=== PATIENT | female | born 2000 | race Caucasian/White ===

== ENCOUNTER 2023-12-20 18:15 | Emergency (ER) | payer OTHER, SELFPAY ==
[2023-12-20 18:19] VITALS: BP 144/94
--- NOTE | 2023-12-20 19:53 | ED.GENMED ---
History of Present Illness
General
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
Source: patient
Exam Limitations: none
Time Seen by Provider: 12/20/23 19:31
History of Present Illness
History of Present Illness:
This is a 23 year old female that comes in with c/o vaginal mass. States that she found this today in the vaginal area and there is no pain. States that she has a little diarrhea. States that she also recently had a UTI. Denies any fever, chills,
chest pain, SOB, abd pain, nausea vomiting, diarrhea, headache, dizziness, urinary burning.
Past History
Past History
ED Past Medical History: Hypercholesterolemia
ED Past Surgical History: None
Social History
Tobacco: Non-smoker
Alcohol: Occasional
Personal: Single
Living: with family
Review of Systems
Review of Systems
All Other Systems: ROS reviewed and negative except as documented in HPI and ROS
Constitutional: Reports no symptoms; Denies fever or chills
EENT: Reports no symptoms
Respiratory: Reports no symptoms; Denies cough or trouble breathing
Cardiac: Reports no symptoms; Denies chest pain
ABD/GI: Reports diarrhea; Denies abdominal pain, nausea or vomiting
: Reports other (vaginal mass)
Musculoskeletal: Reports no symptoms
Skin: Reports no symptoms
Neurological: Reports no symptoms; Denies dizzy or headache
Psychiatric: Reports no symptoms
Phy Exam
General Physical Exam
General Presentation: well appearing and no apparent distress
General age: appears stated age
General Skin: warm and dry
General Habitus: normal
General Mental: alert
General Hydration: appears well hydrated
ENT Exam
ENT Exam: TM's normal, pharynx normal and neck supple
Eye Exam
Eye Exam: EOMI
Cardiovascular Exam
Cardiovascular Exam: regular rate/rhythm, no edema, no murmur and normal peripheral pulses
Pulmonary Exam
Pulmonary Exam: lungs clear, no respiratory distress, no rales, chest non tender, no crackles, no rhonchi, no wheezing and no cough
Gastrointestinal Exam
Gastrointestinal Exam: normal bowel sounds, non tender, soft, no organomegaly, no pulsatile mass and non distended
Genitourinary Exam Female
Vaginal Exam: other (small appearing blood collection at the urethra. Pliable)
Vaginal Bleeding: none
Musculoskeletal Exam
Musculoskeletal Exam: full ROM and no edema
Skin Exam
Skin Exam: normal color, warm/dry, no rash and no petechia
Psychiatric Exam
Psychiatric Exam: normal mood/affect
Course
Vital Signs
Initial and Last Documented VS:
Initial Vital Signs
Temp Pulse Resp BP Pulse Ox
99 F 97 20 144/94 99
12/20/23 18:19 12/20/23 18:19 12/20/23 18:19 12/20/23 18:19 12/20/23 18:19
Last Documented Vital Signs
Temp Pulse Resp BP Pulse Ox
99 F 97 20 144/94 99
12/20/23 18:19 12/20/23 18:19 12/20/23 18:19 12/20/23 18:19 12/20/23 18:19
MDM/Problems Addressed
Differential Diagnosis Includes:
Vaginal hemorrhoid, Ureteral hemorrhoid
MDM/Problems Addressed:
This is a 23 year old female that comes in with c/o a vaginal mass. States that she just found this today and it is not painful.
Explained that this is like a Hemorrhoid but in the vaginal area near the urethra. Will have patient do warm sits baths and follow up with the [facility] and the Urologist. Patient to return with any concerns.
Chronic conditions affecting care:
NA
Acute Exacerbation and/or Progression of Chronic Illness:
NA
*Pulse Oximetry
Patient hypoxic: no
*EKG
Interpreted by ED Provider?: NA
Rate: EKG- N/A
*Front End Loader Operator Interpretation
Rate: Front End Loader Operator- N/A
*Critical Care Note
Total Time (30-74mins, 75-104mins- exclusive of procedures): Not Applicable
ED Attending Note
-
Portions of this chart may have been created with voice recognition software.� Occasional wrong word or��sound alike� substitutions may have occurred due to the inherent limitations of voice recognition software.
Discharge Plan
Departure
Disposition: Home (Routine Discharge)
Date of Disposition: 12/20/23
Time of Disposition: 20:02
Patient with high blood pressure during this ER visit?: Yes
Condition: Good
Covid-19: Not Applicable
Discharge Problem:
VAGINAL HEMORRHOID
Instructions: How to Do a Sitz Bath, BLOOD PRESSURE
Prescriptions:
No Action
No Current Medications
0
Additional Instructions:
As discussed, this looks to be a small blood collection like a hemorrhoid that is near the urethra. Please follow up with the SW[facility] SWALLOWER or the Urologist for further evaluation. You may do sitz baths 3-4 times daily for 20ming to help the body reabsorb
this blood. IF YOU HAVE ANY OTHER CONCERNS PLEASE RETURN TO THE EMERGENCY ROOM
Interventions
Interventions:
*Risk Screen - Suicide Last Done: 12/20/23 18:19
Discharge Date and Time
Print Language: BARBADIAN
[2023-12-20 20:44] VITALS: BP 123/85
== END 2023-12-20 20:46 | disposition home or self-care (01) ==
LOC: EMR 18:15
PROVIDERS: EMERGENCY PHYSICIAN Emergency Medicine; FAMILY PHYSICIAN Family Medicine
DX: K64.8 Other hemorrhoids (principal); E78.00 Pure hypercholesterolemia, unspecified
CPT/HCPCS: 99282

== ENCOUNTER → 2024-02-20 13:36 | Outpatient (REF) | payer OTHER, SELFPAY | LOC: PAVMRI 13:36 | PROVIDERS: ATTENDING PHYSICIAN Obstetrics & Gynecology | DX: N36.1 Urethral diverticulum (principal) | CPT/HCPCS: 72197; A9575 ==